=== PATIENT | female | born 1975 | race Caucasian/White ===

== ENCOUNTER → 2016-09-08 | Outpatient (CLI) | payer MEDICARE ==
[~2016-09-08] MED LIST: LISINOPRIL5 MG PO; LOPRESSOR 25 MG25 MG PO; NORVASC 5 MG TAB5 MG PO
== END ==
LOC: MAMO 09-07 07:40
DX: N63 Unspecified lump in breast (principal); Z80.3 Family history of malignant neoplasm of breast
CPT/HCPCS: 76642-LT; G0204

== ENCOUNTER 2016-12-29 09:07 | Emergency (ER) | payer MEDICARE ==
[2016-12-29 11:29] LABS: HEMOGLOBIN 15.9 gm/dl (12.3-15.3); RED BLOOD COUNT 4.64 M/UL (4.00-5.10)
[2016-12-29 12:02] LABS: BUN/CREATININE RATIO 54 (0-10)
== END 2016-12-29 22:10 | disposition home or self-care (01) ==
LOC: ER1 09:07
PROVIDERS: Physician Assistant
DX: N39.0 Urinary tract infection, site not specified (principal); R26.81 Unsteadiness on feet; E86.0 Dehydration; E87.6 Hypokalemia; R00.0 Tachycardia, unspecified; G35 Multiple sclerosis; F17.200 Nicotine dependence, unspecified, uncomplicated; Z79.899 Other long term (current) drug therapy
CPT/HCPCS: 36415; 70450; 71020; 80053; 80307; 81001; 82550; 82553; 83690; 83735; 83874; 84132; 84484; 85025; 93005; 96361; 96365; 99284; J0696; J7030; J7050

== ENCOUNTER → 2016-12-30 | Outpatient (CLI) | payer MEDICARE | LOC: LAB 16:27 | DX: E87.6 Hypokalemia (principal) | CPT/HCPCS: 36415; 84132 ==

== ENCOUNTER → 2020-08-17 | Outpatient (CLI) | payer OTHER ==
[~2020-08-17] VITALS: Ht 165.1 cm; Wt 51.3 kg
[~2020-08-17] MED LIST changes: +HYDROCODON-ACE1 EAC4 PO; +ZOFRAN ODT 4 MG4 MG SL
== END ==
LOC: OPSV 09:00
DX: G35 Multiple sclerosis (principal)
CPT/HCPCS: 96365; 96366; 96375; J1200; J2350; J2930; J7030

== ENCOUNTER 2020-12-16 | Emergency (ER) | payer OTHER ==
[~2020-12-16] MED LIST changes: -HYDROCODON-ACE1 EAC4 PO; -ZOFRAN ODT 4 MG4 MG SL
[2020-12-16 03:07] LABS: HEMOGLOBIN 14.4 gm/dl (12.3-15.3); RED BLOOD COUNT 5.04 M/UL (4.00-5.10); WHITE BLOOD COUNT 14.5 K/UL (4.5-11.0)
[2020-12-16 03:26] LABS: BUN/CREATININE RATIO 22 (0-10)
[2020-12-16] MEDS ORDERED: ZOFRAN ODT 4 MG4 MG SL (06:17)
[2020-12-16] MEDS ORDERED: HYDROCODON-ACE1 EAC4 PO (06:17)
== END 2020-12-16 06:30 | disposition home or self-care (01) ==
LOC: ER1
PROVIDERS: Emergency Medicine
DX: K85.90 Acute pancreatitis without necrosis or infection, unspecified (principal); E11.9 Type 2 diabetes mellitus without complications; F17.200 Nicotine dependence, unspecified, uncomplicated
CPT/HCPCS: 80053; 81001; 82150; 83605; 83690; 84703; 85025; 96374; 96375; 99284; G0480; J2270; J2405; Q9967

== ENCOUNTER → 2021-02-15 | Outpatient (CLI) | payer OTHER ==
[~2021-02-15] VITALS: Ht 165.1 cm; Wt 51.3 kg
[~2021-02-15] MED LIST changes: +HYDROCODON-ACE1 EAC4 PO; +OMNICEF 300 MG300 MG PO; +ZOFRAN ODT 4 MG4 MG SL
== END ==
LOC: OPSV 09:00
DX: G35 Multiple sclerosis (principal)
CPT/HCPCS: 96367; 96375; 96413; 96415; J1200; J2350; J2930; J7030

== ENCOUNTER 2021-03-15 17:42 | Emergency (ER) | payer OTHER ==
[~2021-03-15 17:42] MED LIST changes: -OMNICEF 300 MG300 MG PO
[2021-03-15 20:03] LABS: HEMOGLOBIN 13.7 gm/dl (12.3-15.3); RED BLOOD COUNT 4.98 M/UL (4.00-5.10); WHITE BLOOD COUNT 12.5 K/UL (4.5-11.0)
[2021-03-15 20:15] LABS: BUN/CREATININE RATIO 16 (0-10)
[2021-03-15] MEDS ORDERED: OMNICEF 300 MG300 MG PO (22:25)
== END 2021-03-15 22:50 | disposition home or self-care (01) ==
LOC: ER1 17:42
PROVIDERS: Physician Assistant
DX: R07.89 Other chest pain (principal); N39.0 Urinary tract infection, site not specified; R06.02 Shortness of breath; E11.9 Type 2 diabetes mellitus without complications; F17.210 Nicotine dependence, cigarettes, uncomplicated; Z79.4 Long term (current) use of insulin; Z20.822 Contact with and (suspected) exposure to COVID-19
CPT/HCPCS: 71045; 80053; 81001; 82550; 82553; 83874; 84484; 85025; 93005; 96374; 99285; J0696; U0002

== ENCOUNTER 2021-05-25 17:15 | Emergency (ER) | payer OTHER ==
[~2021-05-25 17:15] MED LIST changes: +OMNICEF 300 MG300 MG PO
[2021-05-25] MEDS ORDERED: SILVADENE20 GM TP (18:34)
[2021-05-25] MEDS ORDERED: NAPROSYN500 MG PO (18:34)
[2021-05-25] MEDS ORDERED: CEPHALEXIN500 MG PO (18:34)
== END 2021-05-25 19:00 | disposition home or self-care (01) ==
LOC: ER1 17:15
DX: T22.231A Burn of second degree of right upper arm, initial encounter (principal); T31.0 Burns involving less than 10% of body surface; Z23 Encounter for immunization; F17.200 Nicotine dependence, unspecified, uncomplicated; X08.8XXA Exposure to other specified smoke, fire and flames, initial encounter
CPT/HCPCS: 16000; 90471; 90715; 96372; 99283; J1885

== ENCOUNTER → 2021-08-18 | Outpatient (CLI) | payer OTHER ==
[~2021-08-18] VITALS: Ht 165.1 cm; Wt 51.3 kg
[~2021-08-18] MED LIST changes: +CEPHALEXIN500 MG PO; +NAPROSYN500 MG PO; +SILVADENE20 GM TP
== END ==
LOC: OPSV 09:00
DX: G35 Multiple sclerosis (principal)
CPT/HCPCS: 96375; 96413; 96415; J1200; J2350; J2930; J7030

== ENCOUNTER 2021-09-11 14:07 | Inpatient (IN) | payer OTHER ==
[~2021-09-11] VITALS: Ht 165.1 cm; Wt 46.7 kg
[~2021-09-11 14:07] MED LIST changes: +VITAMIN D21250 MCG PO
[2021-09-11 16:56] LABS: HEMOGLOBIN 12.2 gm/dl (12.3-15.3); RED BLOOD COUNT 4.27 M/UL (4.00-5.10)
[2021-09-11 17:14] LABS: BUN/CREATININE RATIO 12 (0-10)
[2021-09-11] MEDS ORDERED: HYDROXYZINE PAM25 MG PO (18:32)
[2021-09-11] MEDS ORDERED: SERTRALINE HCL100 MG PO (18:34)
[2021-09-11] MEDS ORDERED: BUSPIRONE HCL15 MG PO (18:35)
[2021-09-12 03:43] LABS: HEMOGLOBIN 10.8 gm/dl (12.3-15.3)
[2021-09-12 03:51] LABS: RED BLOOD COUNT 3.84 M/UL (4.00-5.10); WHITE BLOOD COUNT 8.6 K/UL (4.5-11.0)
[2021-09-12 03:58] LABS: BUN/CREATININE RATIO 16 (0-10)
[2021-09-12] MEDS ORDERED: PROAIR HFA8.5 GM INH (14:44)
[2021-09-12] MEDS ORDERED: OCREVUS (14:46)
--- NOTE | 2021-09-12 14:53 | NUR ---
contacted patient family member listed on his contact information and he informed me that he does not know the patient family physician name. family member stated he takes him to [facility] and he cant remember the name. instructed to make appt for one week for follow up visit and he verbalized understanding.
[2021-09-12] MEDS ORDERED: BASAGLAR K100 UNIT/1 SC (15:09)
[2021-09-12] MEDS ORDERED: GABAPENTIN300 MG PO (18:26)
[2021-09-12] MEDS ORDERED: LIORESAL TAB 1010 MG PO (18:28)
[2021-09-12] MEDS ORDERED: INDERAL TAB 2020 MG PO (18:30)
[2021-09-12] MEDS ORDERED: DESYREL 50 MG T50 MG PO (18:31)
[2021-09-12] MEDS ORDERED: IBUPROFEN600 MG PO (18:36)
[2021-09-12] MEDS ORDERED: ATORVASTATIN CA10 MG PO (18:39)
--- NOTE | 2021-09-13 01:12 | NUR ---
APPROX 2229 PT IS GETTING IN WHEELCHAIR TO GO OUTSIDE. STATED THAT SHE JUST HAD SURGERY NO GOOD TO BE GOING OUTSIDE. PT STATES THAT HER ARMS WORK JUST FINE, ITS HER LEGS THAT DONT WORK. PT LEFT FLOOR APPROX 2034 IN WHEELCHAIR.
--- NOTE | 2021-09-13 06:27 | NUR ---
patient using her wheelchair going outside and stated it was ok for her to use her wheelchair per PT. she stated she can manage with her moving around using wheelchair.
[2021-09-13 06:38] LABS: BUN/CREATININE RATIO 18 (0-10)
[2021-09-13 06:48] LABS: HEMOGLOBIN 9.5 gm/dl (12.3-15.3)
[2021-09-13 06:49] LABS: RED BLOOD COUNT 3.36 M/UL (4.00-5.10); WHITE BLOOD COUNT 22.7 K/UL (4.5-11.0)
--- NOTE | 2021-09-13 07:30 | NUR ---
dr. britton on the floor and seen patient dressing and reported of patient transferring from bed to wheelchair independently. he acknowledged
--- NOTE | 2021-09-13 07:41 | NUR ---
dressing change on upper area of the surgical incision. change with aquacel per dr. britton order.
[2021-09-13 15:55] LABS: HEMOGLOBIN 8.2 gm/dl (12.3-15.3); WHITE BLOOD COUNT 22.6 K/UL (4.5-11.0)
[2021-09-13 16:07] LABS: RED BLOOD COUNT 2.92 M/UL (4.00-5.10)
--- NOTE | 2021-09-13 17:07 | NUR ---
reported lactic acid result, acknowledged by dr. uribe
--- NOTE | 2021-09-13 22:37 | NUR ---
APPROX 2110 PT IS IN WHEELCHAIR LEAVING FLOOR TO GO SMOKE.
[2021-09-14 10:56] LABS: HEMOGLOBIN 8.5 gm/dl (12.3-15.3); RED BLOOD COUNT 2.95 M/UL (4.00-5.10)
--- NOTE | 2021-09-14 11:12 | NUR ---
patient off the floor using wheelchair smoking.
[2021-09-14 11:14] LABS: WHITE BLOOD COUNT 16.1 K/UL (4.5-11.0)
[2021-09-14 11:24] LABS: BUN/CREATININE RATIO 17 (0-10)
[2021-09-15 04:05] LABS: HEMOGLOBIN 7.1 gm/dl (12.3-15.3)
[2021-09-15 04:09] LABS: RED BLOOD COUNT 2.54 M/UL (4.00-5.10); WHITE BLOOD COUNT 9.7 K/UL (4.5-11.0)
[2021-09-15 04:30] LABS: BUN/CREATININE RATIO 14 (0-10)
[2021-09-15 11:30] LABS: HEMOGLOBIN 8.3 gm/dl (12.3-15.3)
[2021-09-16 06:59] LABS: BUN/CREATININE RATIO 11 (0-10)
[2021-09-16 07:32] LABS: HEMOGLOBIN 8.1 gm/dl (12.3-15.3); WHITE BLOOD COUNT 11.2 K/UL (4.5-11.0)
[2021-09-16 07:33] LABS: RED BLOOD COUNT 2.86 M/UL (4.00-5.10)
[2021-09-17 04:47] LABS: HEMOGLOBIN 8.5 gm/dl (12.3-15.3); RED BLOOD COUNT 3.05 M/UL (4.00-5.10); WHITE BLOOD COUNT 11.8 K/UL (4.5-11.0)
[2021-09-17 05:11] LABS: BUN/CREATININE RATIO 9 (0-10)
[2021-09-17] MEDS ORDERED: FERROUS GLUCON324 M1 PO (12:36)
[2021-09-17] MEDS ORDERED: MIDODRINE HCL5 MG PO (12:36)
[2021-09-17] MEDS ORDERED: HYDROCODON-ACE1 EAC2 PO (12:36)
[2021-09-17] MEDS ORDERED: ELIQUIS 2.5 MG2.5 MG PO (12:36)
== END 2021-09-17 16:09 | disposition home health service (06) | DRG 480 ==
LOC: ER1 14:07 → M/S 16:30 → MED SURG 4 16:30 → M/S 17:10 → ER1 17:10 → M/S 09-12 08:17
PROVIDERS: Internal Medicine; Orthopaedic Surgery; Physician Assistant Medical; ADMIT Family Medicine
PROC: 0QS604Z Reposition Right Upper Femur with Internal Fixation Device, Open Approach (ICD-10-PCS; principal; 2021-09-12 07:53)
DX: S72.141A Displaced intertrochanteric fracture of right femur, initial encounter for closed fracture (principal); E43 Unspecified severe protein-calorie malnutrition; Z68.1 Body mass index [BMI] 19.9 or less, adult; D62 Acute posthemorrhagic anemia; E87.2 Acidosis; D72.829 Elevated white blood cell count, unspecified; Z20.822 Contact with and (suspected) exposure to COVID-19; G89.29 Other chronic pain; I10 Essential (primary) hypertension; E78.5 Hyperlipidemia, unspecified; G35 Multiple sclerosis; F17.210 Nicotine dependence, cigarettes, uncomplicated; W05.0XXA Fall from non-moving wheelchair, initial encounter; Z99.3 Dependence on wheelchair; Y92.009 Unspecified place in unspecified non-institutional (private) residence as the place of occurrence of the external cause; Z98.890 Other specified postprocedural states; Z80.3 Family history of malignant neoplasm of breast; I25.2 Old myocardial infarction
CPT/HCPCS: 36415; 71045; 73502; 73552; 76000; 80048; 80053; 80202; 82962; 83036; 83540; 83550; 83605; 83735; 85014; 85018; 85025; 85027; 85610; 86850; 86900; 86901; 87040; 87086; 93005; 94640; 94760; 96374; 97110; 97110-GP-CQ; 97116; 97116-GP-CQ; 97161; 97166; 97530; 97530-GP-CQ; 97535; 99285; C1713; J0171; J0690; J1100; J1170; J1885; J2001; J2185; J2250; J2370; J2405; J2704; J2765; J2795; J3010; J3370; J7030; J7040; J7050; J7070; J7120; Q0177; U0002

== ENCOUNTER 2021-10-03 21:17 | Emergency (ER) | payer OTHER ==
[~2021-10-03 21:17] MED LIST changes: +ATORVASTATIN CA10 MG PO; +BASAGLAR K100 UNIT/1 SC; +BUSPIRONE HCL15 MG PO; +DESYREL 50 MG T50 MG PO; +ELIQUIS 2.5 MG2.5 MG PO; +FERROUS GLUCON324 M1 PO; +GABAPENTIN300 MG PO; +HYDROCODON-ACE1 EAC2 PO; +HYDROXYZINE PAM25 MG PO; +IBUPROFEN600 MG PO; +INDERAL TAB 2020 MG PO; +LIORESAL TAB 1010 MG PO; +MIDODRINE HCL5 MG PO; +OCREVUS; +PROAIR HFA8.5 GM INH; +SERTRALINE HCL100 MG PO
== END 2021-10-03 23:08 | disposition home or self-care (01) ==
LOC: ER1 21:17
DX: M25.551 Pain in right hip (principal)
CPT/HCPCS: 73552; 99283

== ENCOUNTER 2022-02-05 13:04 | Inpatient (IN) | payer OTHER ==
[~2022-02-05] VITALS: Ht 165.1 cm; Wt 42.2 kg
[2022-02-05 14:51] LABS: HEMOGLOBIN 13.5 gm/dl (12.3-15.3); RED BLOOD COUNT 4.31 M/UL (4.00-5.10); WHITE BLOOD COUNT 27.7 K/UL (4.5-11.0)
[2022-02-05 15:13] LABS: BORDETELLA PARAPERTUSSIS Not Detected (Not Detectd); BORDETELLA PERTUSSIS Not Detected (Not Detectd); CHLAMYDIA PNEUMONIAE Not Detected (Not Detectd); CORONAVIRUS HKU1 Not Detected (Not Detectd); CORONAVIRUS NL63 Not Detected (Not Detectd); CORONAVIRUS OC43 Not Detected (Not Detectd); CORONOAVIRUS 229E Not Detected (Not Detectd); HUMAN METAPNEUMOVIRUS Not Detected (Not Detectd); HUMAN RHINOVIRUS/ENTEROVIRUS Not Detected (Not Detectd); INFLUENZA A Not Detected (Not Detectd); INFLUENZA B Not Detected (Not Detectd); MYCOPLASMA PNEUMONIAE Not Detected (Not Detectd); PARAINFLUENZA VIRUS 1 Not Detected (Not Detectd); PARAINFLUENZA VIRUS 2 Not Detected (Not Detectd); PARAINFLUENZA VIRUS 3 Not Detected (Not Detectd); PARAINFLUENZA VIRUS 4 Not Detected (Not Detectd); RESPIRATORY SYNCYTIAL VIRUS Not Detected (Not Detectd)
[2022-02-05 15:17] LABS: BUN/CREATININE RATIO 13 (0-10)
[2022-02-05 16:25] LABS: SARS-CoV-2 NOT DETECTED (Not Detectd)
[2022-02-06 06:10] LABS: HEMOGLOBIN 10.6 gm/dl (12.3-15.3); RED BLOOD COUNT 3.53 M/UL (4.00-5.10); WHITE BLOOD COUNT 17.8 K/UL (4.5-11.0)
[2022-02-06 07:27] LABS: BUN/CREATININE RATIO 10 (0-10)
[2022-02-06] MEDS ORDERED: MECLIZINE HCL25 MG PO (11:43)
[2022-02-07 02:52] LABS: HEMOGLOBIN 9.6 gm/dl (12.3-15.3); RED BLOOD COUNT 3.18 M/UL (4.00-5.10); WHITE BLOOD COUNT 15.7 K/UL (4.5-11.0)
[2022-02-07 03:15] LABS: BUN/CREATININE RATIO 9 (0-10)
--- NOTE | 2022-02-07 07:52 | NUR ---
NOTIFIED DR. GUARDADO OF LOW POTASSIUM LAB OF 3.4, WHICH WAS NO CHANGE FROM THE PREVIOUS LAB. NO NEW ORDERS AT THIS TIME.
[2022-02-08 06:21] LABS: HEMOGLOBIN 11.2 gm/dl (12.3-15.3); WHITE BLOOD COUNT 12.2 K/UL (4.5-11.0)
[2022-02-08 06:24] LABS: RED BLOOD COUNT 3.62 M/UL (4.00-5.10)
[2022-02-08 06:39] LABS: BUN/CREATININE RATIO 11 (0-10)
[2022-02-08] MEDS ORDERED: AMOX TR-K CLV1 EAC4 PO (08:30)
== END 2022-02-08 09:35 | disposition home or self-care (01) | DRG 872 ==
LOC: ER1 13:04 → CDU 21:25 → M/S 21:25
PROVIDERS: Internal Medicine; Preventive Medicine Occupational Medicine; ADMIT Internal Medicine
DX: A41.51 Sepsis due to Escherichia coli [E. coli] (principal); N10 Acute pyelonephritis; E87.3 Alkalosis; E44.1 Mild protein-calorie malnutrition; E87.1 Hypo-osmolality and hyponatremia; Z68.1 Body mass index [BMI] 19.9 or less, adult; Z20.822 Contact with and (suspected) exposure to COVID-19; F17.200 Nicotine dependence, unspecified, uncomplicated; Z82.3 Family history of stroke; G35 Multiple sclerosis; E11.9 Type 2 diabetes mellitus without complications; E86.0 Dehydration; E87.6 Hypokalemia; Z99.3 Dependence on wheelchair; Z98.890 Other specified postprocedural states; Z98.82 Breast implant status; Z79.4 Long term (current) use of insulin
CPT/HCPCS: 36415; 36600; 71045; 80048; 80053; 80307; 81001; 82009; 82140; 82550; 82553; 82803; 82962; 83036; 83605; 83690; 83735; 83880; 84100; 84484; 85025; 85652; 86140; 87040; 87077; 87086; 87186; 87633; 93005; 94664; 96365; 96375; 96376; 97161; 99285; G0480; J0696; J1650; J2185; J2405; J2543; J2550; J3480; Q0177; Q9967